=== PATIENT | female | born 1945 | race Caucasian/White ===

== ENCOUNTER → 2018-02-17 | Outpatient (CLI) | payer MEDICARE, OTHER ==
--- NOTE | 2018-02-17 14:35 | Diagnostic Imaging Report ---
PROCEDURE: CT lumbar spine without contrast. TECHNIQUE: Multiple contiguous axial images were obtained through the lumbar spine without the use of intravenous contrast. Sagittal and coronal reformations were then performed. INDICATION: Back pain. FINDINGS: The previous CT of the lumbar spine exam performed on 04/30/2014 noted postsurgical changes consistent with a prior anterior fusion and laminectomy at L5-S1. In the interval since the previous exam, the patient has undergone a fusion of L1, L2 and L3. There are now pedicle screws in place on the right at these three levels. The pedicle screws at L2 and L3 seem to be in good position but the pedicle screw at L1 does course medial to the pedicle and is in close proximity to the thecal sac. There are also orthopedic fixation screws traversing the vertebral bodies of L1, L2 and L3 from left to right. Interbody devices are also seen at the L1-L2 and L2-3 levels. The streak artifact related to the orthopedic hardware does limit the evaluation of the thecal sac. There is no obvious disc protrusion identified. The postsurgical changes involving L5-S1 seen previously appear stable. In the interval since the prior exam a 30-40% compression deformity of the superior endplate of T12 has developed. I suspect this injury is long-standing in nature. If there is clinical concern that this injury is subacute, then MRI would be recommended for additional study. There is no acute bony abnormality noted otherwise. There is no sign of a paraspinal mass. IMPRESSION: 1. In the interval since the previous exam the patient has undergone a fusion of L1, L2 and L3. The right pedicle screw at L1 does course medial to the pedicle and is in close proximity to the thecal sac. The other orthopedic hardware appears to be in good position. 2. The postsurgical changes involving L5 and S1 seen previously appears stable. 3. The thecal sac is difficult to evaluate due to the artifact related to the orthopedic hardware. There is no obvious spinal stenosis identified. If further imaging is desired however, then MRI would be recommended. 4. There is a 30-40% compression fracture of T12. I suspect this injury is long-standing in nature. Recommendations as above. Dictated by: Dictated on workstation # [id number]
== END ==
LOC: RAD 12:26
PROVIDERS: ATTEND Orthopaedic Surgery Orthopaedic Surgery of the Spine
DX: S22.089A Unspecified fracture of T11-T12 vertebra, initial encounter for closed fracture (principal); Z98.1 Arthrodesis status
CPT/HCPCS: 72131

== ENCOUNTER → 2019-09-11 | Outpatient (CLI) | payer MEDICARE, OTHER | LOC: LAB FS 12:25 | PROVIDERS: ATTEND Orthopaedic Surgery Orthopaedic Surgery of the Spine | DX: Z01.818 Encounter for other preprocedural examination (principal); M54.16 Radiculopathy, lumbar region; Z20.828 Contact with and (suspected) exposure to other viral communicable diseases | CPT/HCPCS: 87635 ==